=== PATIENT | male | born 2000 | race Caucasian/White ===

== ENCOUNTER 2023-08-12 10:16 | Emergency (ER) | payer BC, SELFPAY ==
[2023-08-12] VITALS (15 sets, daily range): BP systolic 117–142; BP diastolic 76–91; PULSE 62–90; RESP 12–20; TEMP 36.6; O2SAT 99–100
--- NOTE | ~2023-08-12 | XR_ITS ---
EXAMINATION: XR chest 2V DATE: 08/12/2023 10:57 INDICATION: Chest pain. TECHNIQUE: Frontal and lateral views of the chest were obtained. COMPARISON: None. FINDINGS: There is no pneumonia, pleural effusion, or pneumothorax. The heart size is normal. IMPRESSION: 1. No acute cardiopulmonary disease. Reviewed, dictated and finalized at location A.
--- NOTE | 2023-08-12 10:20 | ECG_ITS ---
Measurements Intervals [place] Rate: 76 P: 65 [place]: 135 QRS: 45 QRSD: 98 T: 56 QT: 369 QTc: 417 Interpretive Statements SINUS RHYTHM WITH MARKED SINUS ARRHYTHMIA NO PREVIOUS ECG AVAILABLE FOR COMPARISON Electronically Signed On 08-12-2023 13:02:12 CDT by Ney Liu M.D.
[2023-08-12 10:59] LABS: Basophils Percent Auto 0.8 % (0.2-1.2); Eosinophils Absolute Auto 0.1 K/mm3 (0-0.3); Eosinophils Percent Auto 2.8 % (0-4.4); Hematocrit 48.2 % (42.0-52.0); Hemoglobin 16.2 g/dL (14.0-18.0); Lymphocytes Absolute Auto 2.52 K/mm3 (0.9-3.2); Lymphocytes Percent Auto 49.7 % (18.3-44.2); Mean Corpuscular HGB Conc 33.6 g/dl (32-36); Mean Corpuscular Hemoglobin 31.4 pg (26-34); Mean Corpuscular Volume 93.4 fl (80-100); Mean Platelet Volume 10.7 fl (7.4-10.4); Monocytes Absolute Auto 0.5 K/mm3 (0.1-0.6); Monocytes Percent Auto 9.5 % (2.6-8.5); Neutrophils Absolute Auto 1.9 K/mm3 (1.3-6.7); Neutrophils Percent Auto 37.2 % (45.5-73.1); Platelet Count Result 199 k/mm3 (150-375); Red Blood Count 5.16 M/mm3 (4.6-6.20); Red Cell Distribution Width 11.7 % (11.5-14.5); White Blood Count 5.1 K/mm3 (4.5-10.0)
[2023-08-12 11:10] LABS: Alanine Aminotransferase 27 U/L (6-50); Albumin Level 4.7 g/dL (3.5-5.1); Alkaline Phosphatase 55 U/L (38-126); Anion Gap 7 mmol/L (8-16); Aspartate Amino Transferase 31 U/L (17-59); Bilirubin,Total 0.5 mg/dL (0.2-1.3); Blood Urea Nitrogen 10 mg/dL (9-20); Calcium 9.5 mg/dL (8.4-10.2); Carbon Dioxide 30 mmol/L (22-30); Chloride 102 mmol/L (98-107); Estimated CRCL calculation 114 ml/min; Estimated Glomerular Filt Rate > 60; Glucose 87 mg/dL (65-110); Lipase 100 U/L (23-300); Potassium 3.9 mmol/L (3.4-5.0); Sodium 139 mmol/L (137-145)
[2023-08-12 11:11] LABS: Partial Thromboplastin Time 27.1 SECONDS (22.3-36.8); Prothrombin Time 13.2 Seconds (11.1-14.7)
[2023-08-12 11:20] LABS: Troponin I < 0.012 ng/mL (0.000-0.034)
--- NOTE | 2023-08-12 13:36 | ED.CHESTPAIN ---
HPI - Chest Pain General Chief Complaint: Chest Pain Stated Complaint: chest tightness Time Seen by Provider: 08/12/23 10:19 Source: patient and RN notes reviewed Mode of arrival: ambulatory Limitations: no limitations History of Present Illness HPI narrative: This is a 22 year old male who presents for evaluation of left chest pain. PAtient states he noticed pain this morning getting into the shower. He describes his pain as ache. He states continue to notice the pain. His pain has almost completely resolved now. He denies radiating of his pain. He denies nausea, vomiting, diaphoresis, shortness of breath. He denies leg swelling. HE denies calf pain. He denies family history of heart disease. Related Data Allergies Allergy/AdvReac Type Severity Reaction Status Date / Time No Known Allergies Allergy Verified 08/12/23 10:44 Review of Systems Constitutional: Constitutional: Denies weakness Cardiovascular: Cardiovascular: Reports chest pain, Denies syncope, Denies rapid heart rate, Denies irregular heart rhythm, Denies leg edema and Denies dyspnea Respiratory: Respiratory: Denies chest congestion, Denies hemoptysis, Denies excessive phlegm production and Denies dyspnea Gastrointestinal: Gastrointestinal: Denies abdominal pain, Denies hematochezia, Denies diarrhea and Denies vomiting Genitourinary: Genitourinary: Denies hematuria, Denies dysuria, Denies penile discharge and Denies testicular pain Musculoskeletal: Musculoskeletal: Denies joint swelling, Denies loss of height and Denies muscle weakness Neurologic: Denies syncope, Denies focal weakness and Denies weakness PMFSH Past Medical History Medical History Patient denies medical problems Social History Social History (Updated 08/12/23 @ 13:43 by Sarai Jin MD) Smoking status: Never smoker Substance use: never Exam Const: General: no acute distress and alert Nutritional Appearance: well nourished Orientation/consciousness: patient oriented x3 Limitations: no limitations HENMT: Head: normal to inspection Face and sinus: normal facial exam Eyes: EOM: EOMs intact bilaterally Resp: Effort & Inspection: normal respiratory effort Auscultation: clear to auscultation bilaterally Cardio: Rate: regular rate Rhythm: regular rhythm Heart sounds: no murmurs GI: GI Palp: Yes Soft to palpation, No Tenderness to palpation present (GI), No Guarding due to palpation present (GI) and No Rigid due to palpation Auscultation: normal bowel sounds Skin: General skin exam: normal color Rashes: no rashes Neuro: General: patient oriented x3, moves all extremities and CN's II-XI intact bilaterally Extrem: General: normal to inspection and no pedal edema Other: no calf tenderness Psych: Mental Status: mental status grossly normal Affect: normal affect Attitude: cooperative Course Reevaluation(s) Reevaluation #1: PAtient has no complaints. chest pain has resolved. I answered all questions and concerns. He will follow up with PCP for blood pressure check Date: 08/12/23 Time: 14:08 Vital Signs Vital signs: Vital Signs Temperature 97.8 F 08/12/23 10:21 Pulse Rate 90 08/12/23 10:21 Respiratory Rate 17 08/12/23 10:21 Blood Pressure 142/82 H 08/12/23 10:21 Pulse Oximetry 100 08/12/23 10:21 Oxygen Delivery Room Air 08/12/23 10:21 Temperature 97.8 F 08/12/23 10:21 Pulse Rate 67 08/12/23 14:01 Respiratory Rate 12 08/12/23 14:01 Blood Pressure 118/85 08/12/23 14:00 Pulse Oximetry 100 08/12/23 12:34 Oxygen Delivery Room Air 08/12/23 10:21 MDM - Chest Pain MDM Narrative Medical decision making narrative: PERC negative, atypical chest pain, troponin negative x 2 . Heart score 0. Patient pain resolved. Stable for outpatient evaluation. PAin is not anginal. Differential Diagnosis Differential diagnosis: Likely pneumothorax, atypical chest pa
[2023-08-12 13:43] LABS: Troponin I < 0.012 ng/mL (0.000-0.034)
== END 2023-08-12 14:13 | disposition home or self-care (01) ==
PROVIDERS: Emergency Provider General Practice
DX: R07.9 Chest pain, unspecified (principal)
CPT/HCPCS: 36415; 71046; 80053; 83690; 84484; 85025; 85610; 85730; 93005; 99284